=== PATIENT | female | born 2000 | race Caucasian/White ===

== ENCOUNTER 2021-03-05 16:50 | Emergency (ER) | payer MEDICAID, OTHER ==
[~2021-03-05] VITALS: Ht 167.6 cm; Wt 60.9 kg
[2021-03-05 17:06] VITALS: BP 125/70
[2021-03-05] MEDS ORDERED: HYDR-3686 PO (17:47)
== END 2021-03-05 18:23 | disposition home or self-care (01) ==
LOC: ER 16:51
DX: F41.9 Anxiety disorder, unspecified (principal); Z79.899 Other long term (current) drug therapy
CPT/HCPCS: 99283